=== PATIENT | male | born 1960 | race Caucasian/White ===

== ENCOUNTER 2022-03-04 16:04 | Inpatient (IN) | payer MEDICAID ==
[~2022-03-04] VITALS: Ht 172.7 cm; Wt 74.8 kg
[2022-03-04] MEDS ORDERED: MORPHINE SULFATE 4 MG/ML CPJ (NOT FOR IM USE) IV STA (17:59)
[2022-03-04] MEDS ORDERED: ONDANSETRON HCL 4MG/2ML INJ IV STA (17:59)
[2022-03-04] MEDS ORDERED: SODIUM CHLORIDE 0.9% 1,000 ML IV ONE (18:00)
[2022-03-04 19:45] LABS: BASOPHILS % 0.2 % (0.0-2.0); EOSINOPHILS % 1.4 % (0.0-5.0); HEMATOCRIT. 41.2 % (42.0-52.0); HEMOGLOBIN. 14.4 g/dL (14.0-18.0); LYMPHOCYTES % 29.4 % (20.0-50.0); MONOCYTES % 8.4 % (2.0-8.0); NEUTROPHILS % 60.6 % (40.0-76.0); PLATELET 286 x1000/uL (130-400); RED BLOOD CELL COUNT 4.25 mill/uL (4.7-6.1); RED CELL DISTRIBUTION WIDTH 14.4 % (11.6-14.6)
[2022-03-04 19:55] LABS: CHLORIDE 100 mEq/L (98-107)
[2022-03-04 19:56] LABS: INR 0.9; PARTIAL THROMBOPLASTIN TIME 27.7 sec (23.4-31.0); PROTHROMBIN TIME 10.2 sec (9.6-11.0)
[2022-03-04] MEDS ORDERED: ONDANSETRON HCL 4MG/2ML INJ IV NR (20:00)
[2022-03-04] MEDS ORDERED: MORPHINE SULFATE 4 MG/ML CPJ (NOT FOR IM USE) IV NR (20:00)
[2022-03-04] MEDS ORDERED: ASPIRIN 81MG TABLET PO ONE (20:30)
[2022-03-04] MEDS ORDERED: FUROSEMIDE 40MG/4ML VIAL IV ONE (20:30)
[2022-03-04] MEDS ORDERED: NITROGLYCERIN OINT 1GM/INCH UDPKT TD ONE (20:30)
[2022-03-05] MEDS ORDERED: DIPHENHYDRAMINE 50MG/ML VIAL IV PRN (09:30)
[2022-03-05] MEDS ORDERED: IPRATROPIUM/ALBUTEROL 0.5-3(2.5)MG/3ML NEB HHN PRN (09:30)
[2022-03-05] MEDS ORDERED: CLONIDINE 0.1MG TABLET PO PRN (09:30)
[2022-03-05] MEDS ORDERED: ONDANSETRON HCL 4MG/2ML INJ IV PRN (09:30)
[2022-03-05 12:24] VITALS: BP 111/60
[2022-03-05 20:00] VITALS: BP 126/68
[2022-03-05 21:12] VITALS: BP 111/62
[2022-03-05 23:00] VITALS: BP 115/59
[2022-03-06 02:00] VITALS: BP 116/56
[2022-03-06 04:30] VITALS: BP 120/62
[2022-03-06 06:16] LABS: BASOPHILS % 0.7 % (0.0-2.0); EOSINOPHILS % 1.3 % (0.0-5.0); HEMATOCRIT. 42.1 % (42.0-52.0); HEMOGLOBIN. 14.6 g/dL (14.0-18.0); LYMPHOCYTES % 27.1 % (20.0-50.0); MEAN CORPUSCULAR HEMOGLOBIN 33.6 pg (28.0-32.0); MEAN CORPUSCULAR VOLUME 96.7 fL (80.0-94.0); MONOCYTES % 11.1 % (2.0-8.0); NEUTROPHILS % 59.8 % (40.0-76.0); PLATELET 313 x1000/uL (130-400); RED BLOOD CELL COUNT 4.36 mill/uL (4.7-6.1); RED CELL DISTRIBUTION WIDTH 14.6 % (11.6-14.6)
[2022-03-06 07:22] LABS: CHLORIDE 102 mEq/L (98-107)
[2022-03-06 08:00] VITALS: BP 138/56
[2022-03-06 12:00] VITALS: BP 150/83
[2022-03-06] MEDS: FUROSEMIDE 40MG/4ML VIAL IV SCH (16:00)
[2022-03-06] MEDS: NICOTINE 21MG PATCH TD SCH (16:00)
[2022-03-07] VITALS: BP 118/63
[2022-03-07 06:37] LABS: *AMPHETAMINES SCREEN URINE NEGATIVE (NEGATIVE); *BARBITURATES SCREEN URINE NEGATIVE (NEGATIVE); *BENZODIAZEPINES SCREEN URINE NEGATIVE (NEGATIVE); *COCAINE SCREEN URINE NEGATIVE (NEGATIVE); CANNABINOID URINE SCREEN PRESUMTIVE POSITIVE (NEGATIVE); METHADONE URINE SCREEN NEGATIVE (NEGATIVE); OPIATES URINE SCREEN NEGATIVE (NEGATIVE); PHENCYCLIDINE URINE SCREEN NEGATIVE (NEGATIVE)
[2022-03-07 08:26] LABS: CHLORIDE 97 mEq/L (98-107)
[2022-03-07 08:38] LABS: BASOPHILS % 0.8 % (0.0-2.0); EOSINOPHILS % 1.6 % (0.0-5.0); HEMATOCRIT. 45.7 % (42.0-52.0); HEMOGLOBIN. 15.8 g/dL (14.0-18.0); LYMPHOCYTES % 25.4 % (20.0-50.0); MEAN CORPUSCULAR HEMOGLOBIN 33.8 pg (28.0-32.0); NEUTROPHILS % 63.2 % (40.0-76.0); RED BLOOD CELL COUNT 4.66 mill/uL (4.7-6.1); RED CELL DISTRIBUTION WIDTH 14.8 % (11.6-14.6)
[2022-03-07] MEDS: FUROSEMIDE 40MG/4ML VIAL IV SCH (08:54)
[2022-03-07] MEDS: ACETAMINOPHEN 325MG TABLET PO PRN (08:54)
[2022-03-07] MEDS: NICOTINE 21MG PATCH TD SCH (08:55)
[2022-03-07 10:33] LABS: MEAN PLATELET VOLUME 8.4 fl (7.4-10.4); PLATELET 344 x1000/uL (130-400)
[2022-03-07] MEDS ORDERED: FURO40TA5 MT (13:12)
[2022-03-07 20:00] VITALS: BP 112/74
[2022-03-08] MEDS: ACETAMINOPHEN 325MG TABLET PO PRN ×2 (01:21→14:57)
[2022-03-08 04:00] VITALS: BP 104/68
[2022-03-08 06:41] VITALS: BP 104/68
[2022-03-08 08:00] VITALS: BP 104/66
[2022-03-08] MEDS: NICOTINE 21MG PATCH TD SCH (09:13)
[2022-03-08] MEDS: FUROSEMIDE 40MG/4ML VIAL IV SCH (09:36)
[2022-03-08 12:00] VITALS: BP 110/62
[2022-03-08 16:00] VITALS: BP 108/64
[2022-03-08] MEDS: CETIRIZINE 10MG TABLET PO SCH (18:37)
[2022-03-08 20:00] VITALS: BP 120/72
[2022-03-09 04:00] VITALS: BP 107/78
[2022-03-09] MEDS: ACETAMINOPHEN 325MG TABLET PO PRN (06:14)
[2022-03-09 08:00] VITALS: BP 128/84
[2022-03-09] MEDS: FUROSEMIDE 40MG/4ML VIAL IV SCH (08:42)
[2022-03-09] MEDS: NICOTINE 21MG PATCH TD SCH (08:42)
[2022-03-09] MEDS: CETIRIZINE 10MG TABLET PO SCH (08:42)
[2022-03-09 12:00] VITALS: BP 122/80
[2022-03-09] MEDS: DOCUSATE SODIUM 100MG CAPSULE PO PRN ×2 (13:59→20:07)
[2022-03-09 15:55] VITALS: BP 118/67
[2022-03-09 20:00] VITALS: BP 125/80
[2022-03-10 04:00] VITALS: BP 111/67
[2022-03-10] MEDS: ACETAMINOPHEN 325MG TABLET PO PRN ×2 (04:04→13:47)
[2022-03-10] MEDS: NICOTINE 21MG PATCH TD SCH (09:07)
[2022-03-10] MEDS: FUROSEMIDE 40MG/4ML VIAL IV SCH (09:07)
[2022-03-10] MEDS: CETIRIZINE 10MG TABLET PO SCH (09:07)
== END 2022-03-10 14:55 | disposition home or self-care (01) | DRG 194 ==
LOC: ER 16:04 → 3WST 03-05 05:44 → EDBEDREQ 03-05 05:47 → 6EST 03-07 17:35
PROVIDERS: ADMIT Internal Medicine; ATTEND Internal Medicine
DX: I50.33 Acute on chronic diastolic (congestive) heart failure (principal); F17.200 Nicotine dependence, unspecified, uncomplicated; I45.10 Unspecified right bundle-branch block; F32.A Depression, unspecified; Z20.822 Contact with and (suspected) exposure to COVID-19; R09.02 Hypoxemia; Z86.718 Personal history of other venous thrombosis and embolism; Z59.00 Homelessness unspecified; Z79.899 Other long term (current) drug therapy
CPT/HCPCS: 36415; 71045; 80048; 80053; 80061; 80305; 83735; 83880; 84484; 85025; 86850; 86900; 87426; 93005; 93306; 93970; 99285; C1893; C9803; J1940; J2270; J2405; J7030